=== PATIENT | female | born 1970 | race Caucasian/White ===

== ENCOUNTER 2019-02-11 19:35 | Emergency (ER) | payer OTHER ==
[~2019-02-11] VITALS: Ht 167.6 cm; Wt 56.7 kg
[~2019-02-11 19:35] MED LIST: CYCL5TAB PO; TRAM50TA PO
--- NOTE | 2019-02-11 19:48 | ED.ADGEN ---
Past History Past Medical History: Bronchitis, Endometriosis, UTI Past Surgical History: No Surgical History Alcohol Use: None Drug Use: None Adult General Chief Complaint Chief Complaint "... I started getting sick couple days ago fever , chills, cough... But I got much worse today my back hurts when I cough.... Coughing up some sputum..." HPI HPI Patient is a 48 year old female who presents with above hx and complaints coughing, fever or chills, chest/ back pain with coughing episodes. Cough that had productive brown thick sputum. Patient does smoke. No history of immunosuppression. No recent travel or specific ill contacts. Patient normally follows Dr. Gaviria. Patient has not had menstruation for 6 years. Patient denies vaping. Review of Systems Review of Systems Constitutional: History of fever or chills [] Eyes: Denies change in visual acuity, redness, or eye pain [] HENT: History of nasal congestion or sore throat [] Respiratory: History of cough or shortness of breath [] Cardiovascular: No additional information not addressed in HPI [] GI: Denies abdominal pain, nausea, vomiting, bloody stools or diarrhea [] : Denies dysuria or hematuria [] Musculoskeletal: History of Denies back pain with coughing Integument: Denies rash or skin lesions [] Neurologic: Denies headache, focal weakness or sensory changes [] Endocrine: Denies polyuria or polydipsia [] All other systems were reviewed and found to be within normal limits, except as documented in this note. Family History Family History Noncontributory Current Medications Current Medications Current Medications Medications (Trade) Dose Ordered Sig/Sharon Start Time Stop Time Status Last Admin Dose Admin Albuterol Sulfate (Ventolin Hfa Inhaler) 2 puff 1X ONCE 02/11/19 20:00 02/11/19 20:08 DC 02/11/19 22:15 2 PUFF Albuterol/ Ipratropium (Duoneb) 3 ml 1X ONCE 02/11/19 20:00 02/11/19 20:07 DC 02/11/19 21:21 3 ML Azithromycin (Zithromax) 500 mg 1X ONCE 02/11/19 20:00 02/11/19 20:07 DC 02/11/19 20:42 500 MG Ceftriaxone Sodium 1 gm/ Sodium Chloride 50 ml @ 100 mls/hr 1X ONCE 02/11/19 20:00 02/11/19 20:29 DC 02/11/19 20:42 100 MLS/HR Ceftriaxone Sodium (Rocephin) 1 gm STK-MED ONCE 02/11/19 20:30 02/11/19 20:31 DC Iohexol (Omnipaque 350 Mg/ml) 75 ml 1X ONCE 02/11/19 21:45 02/11/19 21:46 DC 02/11/19 22:18 75 ML Ketorolac Tromethamine (Toradol 30mg Vial) 30 mg 1X ONCE 02/11/19 21:15 02/11/19 21:16 DC 02/11/19 21:12 30 MG Lactated Ringer's 1,000 ml @ 1,000 mls/hr Q1H 02/11/19 20:07 02/11/19 21:06 DC 02/11/19 20:42 1,000 MLS/HR Prednisone (Prednisone) 50 mg 1X ONCE 02/11/19 20:00 02/11/19 20:07 DC 02/11/19 20:42 50 MG Sodium Chloride 50 ml @ As Directed STK-MED ONCE 02/11/19 20:30 02/11/19 20:31 DC See nursing for home meds Allergies Allergies Allergies Coded Allergies Type Severity Reaction Last Updated Verified Penicillins Allergy Unknown 02/09/16 Yes codeine Allergy Unknown 02/09/16 Yes Physical Exam Physical Exam Constitutional: Moderate acute distress, non-toxic appearance. [] HENT: Normocephalic, atraumatic, bilateral external ears normal, oropharynx moist, no oral exudates, nose normal. [] Eyes: PERRLA, EOMI, conjunctiva normal, no discharge. [] Neck: Normal range of motion, no tenderness, supple, no stridor. [] Cardiovascular: Tachycardia Heart rate regular rhythm, no murmur [] Lungs & Thorax: Bilateral breath sounds with apex with scattered wheezes and basilar rhonchi bilateral right more than left on auscultation [] Abdomen: Bowel sounds normal, soft, no tenderness, no masses, no pulsatile masses. [] Skin: Warm, dry, no erythema, no rash. [] Back: No tenderness, no CVA tenderness. [] Extremities: No tenderness, no cyanosis, no clubbing, ROM intact, no edema. [] No cording appreciated Neurologic: Alert and oriented X 3, normal motor function, normal sensory function, no focal deficits noted. [] Psychologic: Affect anxious, judgement normal, mood normal. [] Current Patient Data Vital Signs Vital Signs Date Time Temp Pulse Resp B/P (MAP) Pulse Ox O2 Delivery O2 Flow Rate FiO2 02/12/19 00:25 103 20 110/78 (89) 94 Room Air 02/11/19 19:35 98.5 Lab Results Laboratory Tests Test 02/11/19 19:50 02/11/19 20:00 02/11/19 20:29 Urine Collection Type Unknown Urine Color Yellow Urine Clarity Cloudy Urine pH 5.5 Urine Specific [place] 1.020 Urine Protein Neg (NEG-TRACE) Urine Glucose (UA) Neg mg/dL (NEG) Urine Ketones (Stick) Trace mg/dL (NEG) Urine Blood Trace (NEG) Urine Nitrite Pos (NEG) Urine Bilirubin Neg (NEG) Urine Urobilinogen Dipstick 1 mg/dL (0.2 mg/dL) Urine Leukocyte Esterase Trace (NEG) Urine RBC 1-2 /HPF (0-2) Urine WBC 5-10 /HPF (0-4) Urine Squamous Epithelial Cells Occ /LPF Urine Bacteria Many /HPF (0-FEW) Urine Mucus Slight /LPF Urine Opiates Screen Neg (NEG) Urine Methadone Screen Neg (NEG) Urine Barbiturates Neg (NEG) Urine Phencyclidine Screen Neg (NEG) Urine Amphetamine/Methamphetamine Neg (NEG) Urine Benzodiazepines Screen Neg (NEG) Urine Cocaine Screen Neg (NEG) Urine Cannabinoids Screen Neg (NEG) Urine Ethyl Alcohol Neg (NEG) White Blood Count 14.3 x10^3/uL (4.0-11.0) H Red Blood Count 4.47 x10^6/uL (3.50-5.40) Hemoglobin 13.3 g/dL (12.0-15.5) Hematocrit 39.9 % (36.0-47.0) Mean Corpuscular Volume 89 fL (79-100) Mean Corpuscular Hemoglobin 30 pg (25-35) Mean Corpuscular Hemoglobin Concent 33 g/dL (31-37) Red Cell Distribution Width 13.3 % (11.5-14.5) Platelet Count 339 x10^3/uL (140-400) Neutrophils (%) (Auto) 80 % (31-73) H Lymphocytes (%) (Auto) 13 % (24-48) L Monocytes (%) (Auto) 7 % (0-9) Eosinophils (%) (Auto) 0 % (0-3) Basophils (%) (Auto) 0 % (0-3) Neutrophils # (Auto) 11.5 x10^3uL (1.8-7.7) H Lymphocytes # (Auto) 1.8 x10^3/uL (1.0-4.8) Monocytes # (Auto) 1.0 x10^3/uL (0.0-1.1) Eosinophils # (Auto) 0.0 x10^3/uL (0.0-0.7) Basophils # (Auto) 0.1 x10^3/uL (0.0-0.2) Erythrocyte Sedimentation Rate 61 (0-25) H Prothrombin Time 10.0 SEC (9.4-11.4) Prothrombin Time INR 1.0 (0.9-1.1) Activated Partial Thromboplast Time 29 SEC (23-33) D-Dimer (Kathy) 0.21 mg/L (0.00-0.50) Sodium Level 136 mmol/L (136-145) Potassium Level 3.9 mmol/L (3.5-5.1) Chloride Level 101 mmol/L (98-107) Carbon Dioxide Level 24 mmol/L (21-32) Anion Gap 11 (6-14) Blood Urea Nitrogen 10 mg/dL (7-20) Creatinine 0.9 mg/dL (0.6-1.0) Estimated GFR (Cockcroft-Gault) 66.5 Glucose Level 140 mg/dL (70-99) H Lactic Acid Level 1.2 mmol/L (0.4-2.0) Calcium Level 8.9 mg/dL (8.5-10.1) Magnesium Level 2.0 mg/dL (1.8-2.4) Total Bilirubin 0.5 mg/dL (0.2-1.0) Direct Bilirubin 0.1 mg/dL (0.0-0.2) Aspartate Amino Transferase (AST) 18 U/L (15-37) Alanine Aminotransferase (ALT) 22 U/L (14-59) Alkaline Phosphatase 90 U/L (46-116) Troponin I Quantitative < 0.017 ng/mL (0-0.055) Total Protein 7.1 g/dL (6.4-8.2) Albumin 3.7 g/dL (3.4-5.0) POC Urine HCG, Qualitative hcg negative (Negative) EKG EKG I interpretation EKG shows a sinus tachycardia heart and 3 bpm. There is some nonspecific contour changes anterior septal leads. But no findings acute STEMI of contralateral changes.[] Radiology/Procedures Radiology/Procedures My interpretation of chest x-ray shows a right lower lobe infiltrate or atelectasis. Mild COPD type changes. [address] [address] IMAGING REPORT Signed PATIENT: NÉSTOR DEJESUS: [id number] : 1970 LOCATION: ER AGE: 48 SEX: F EXAM STATUS: REG ER ORD. PHYSICIAN: KEYLA SANDERSON MD REASON: cough, GENERAL ACHES, FEVER, X 1 DAY PROCEDURE: CHEST PA & LATERAL PA and lateral chest radiograph 02/21/2019 CLINICAL HISTORY: Generalized aching and fever for one day. PA and lateral digital radiographs of chest were obtained. No previous study is available for comparison. The cardiac silhouette is normal in size and configuration. The thoracic aorta is minimally tortuous. No acute pulmonary infiltrate is seen. No pleural effusion or pneumothorax is noted. The osseous structures are grossly intact. IMPRESSION: No acute abnormality is seen. Electronically signed by: Atif Ware MD (02/11/2019 10:33 PM) [facility] DICTATED AND SIGNED BY: ATIF WARE MD DATE: 02/11/19 943 CC: CATHY GAVIRIA MD; KEYLA SANDERSON MD ~ [][address] [address] IMAGING REPORT Signed PATIENT: NÉSTOR DEJESUS: [id number] : 1970 LOCATION: ER AGE: 48 SEX: F EXAM STATUS: REG ER ORD. PHYSICIAN: KEYLA SANDERSON MD REASON: cp pain, back pain, OMNI 350, 75ml PROCEDURE: CT ANGIOGRAPHY CHEST CTA scan of the Chest with Contrast (Pulmonary Embolism protocol) 02/11/2019 Clinical History: Chest pain. Back pain. Technique: After the intravenous administration of 75 cc of Omnipaque 350, contiguous, 0.625 mm axial sections were obtained through the chest. 2 mm axial and 3D MIP coronal and sagittal reconstructed images were obtained. One or more of the following individualized dose reduction techniques were utilized for this study: 1. Automated exposure control. 2. Adjustment of the mA and/or kV according to patient size. 3. Use of iterative reconstruction technique. Findings: Comparison is made to patient's PA and lateral chest radiographs performed earlier today. No filling defect is seen within the major branches of either pulmonary artery. There is no CT evidence of pulmonary embolism. The heart is normal in size. The thoracic aorta is tortuous but tapers normally. Scattered atherosclerotic calcification of the thoracic aorta is seen. Prominent mediastinal and hilar lymph nodes are seen, right greater than left, which are likely reactive. These measure 1 to 1.7 cm in size. Right lower lobe atelectasis and/or infiltrate is seen posteriorly. Dependent subsegmental atelectasis is seen involving both lungs. No pneumothorax or pleural effusion is seen. Images through the upper abdomen demonstrate a 5 mm low-attenuation lesion involving the right lobe of the liver consistent with a hepatic cyst. Mild degenerative changes are seen involving the thoracic spine. Impression: 1. There is no CT evidence of pulmonary embolism. 2. Right lower lobe atelectasis and/or infiltrate. Electronically signed by: Atif Ware MD (02/11/2019 10:52 PM) [facility] DICTATED AND SIGNED BY: ATIF WARE MD DATE: 02/11/19 8003 CC: CATHY GAVIRIA MD; KEYLA SANDERSON MD ~ Course & Med Decision Making Course & Med Decision Making Pertinent Labs and Imaging studies reviewed. (See chart for details) Patient declines admission at this time. Will go home on Zithromax 250 mg a day. Prednisone 50 mg a day. MDI 2 puffs 4 times a day. Patient return of any concerns. Patient follow-up with Dr. Gaviria. Patient encouraged to stop smoking. Patient follow-up pending cultures. [] Final Impression Final Impression 1. Pneumonia[] right lower lobe 2. COPD 3. Tobacco use 4. Urinary tract infection 5. Leukocytosis 14.3 6. Elevated glucose 140 7. Dragon Disclaimer Dragon Disclaimer This electronic medical record was generated, in whole or in part, using a voice recognition dictation system. Dragon Disclaimer This chart was dictated in whole or in part using Voice Recognition software in a busy, high-work load, and often noisy Emergency Department environment. It may contain unintended and wholly unrecognized errors or omissions. KEYLA SANDERSON MD Feb 11, 2019 19:48
[2019-02-11] MEDS ORDERED: predniSONE 10 MG TABLET PO ONE (20:00)
[2019-02-11] MEDS ORDERED: ALBUTEROL SULFATE 8GM INHALER. INH ONE (20:00)
[2019-02-11] MEDS ORDERED: IPRATRPIUM/ALBUTEROL 0.5/2.5MG 3 ML NEBU. NEB ONE (20:00)
[2019-02-11] MEDS ORDERED: AZITHROMYCIN 250 MG TABLET. PO ONE (20:00)
[2019-02-11] MEDS ORDERED: IV RINGERS SOLUTION,LACTATED 1,000 ML IV SCH (20:07)
[2019-02-11] MEDS ORDERED: cefTRIAXone SODIUM 1 GM VIAL ONE (20:30)
[2019-02-11] MEDS ORDERED: IV NORMAL SALINE 50ML 50 ML ONE (20:30)
[2019-02-11 20:41] LABS: BASO # 0.1 x10^3/uL (0.0-0.2); BASO % 0 % (0-3); EOS % 0 % (0-3); HEMATOCRIT 39.9 % (36.0-47.0); HEMOGLOBIN 13.3 g/dL (12.0-15.5); LYMPH # 1.8 x10^3/uL (1.0-4.8); LYMPH % 13 % (24-48); MEAN CORPUSCULAR HEMOGLOBIN 30 pg (25-35); MEAN CORPUSCULAR HGB CONC 33 g/dL (31-37); MEAN CORPUSCULAR VOLUME 89 fL (79-100); MONO % 7 % (0-9); NEUT # 11.5 x10^3uL (1.8-7.7); NEUT % 80 % (31-73); PLATELET COUNT 339 x10^3/uL (140-400); RED BLOOD COUNT 4.47 x10^6/uL (3.50-5.40); RED CELL DISTRIBUTION WIDTH 13.3 % (11.5-14.5); WHITE BLOOD COUNT 14.3 x10^3/uL (4.0-11.0)
[2019-02-11 20:45] LABS: BARBITURATES NEG (NEG); BENZODIAZEPINES NEG (NEG); CANNABINOIDS NEG (NEG); COCAINE NEG (NEG); METHADONE NEG (NEG); OPIATES NEG (NEG); PHENCYCLIDINE NEG (NEG)
[2019-02-11 20:47] LABS: AMPHETAMINE/METHAMPHETAMINE NEG (NEG)
[2019-02-11 20:53] LABS: ALBUMIN 3.7 g/dL (3.4-5.0); CALCIUM 8.9 mg/dL (8.5-10.1); CREATININE 0.9 mg/dL (0.6-1.0); DIRECT BILIRUBIN 0.1 mg/dL (0.0-0.2); GFR 66.5; POTASSIUM 3.9 mmol/L (3.5-5.1); TOTAL BILIRUBIN 0.5 mg/dL (0.2-1.0); TOTAL PROTEIN 7.1 g/dL (6.4-8.2)
[2019-02-11 20:55] LABS: BACTERIA,URINE MANY /HPF (0-FEW); BILIRUBIN,URINE NEG (NEG); CLARITY,URINE CLOUDY; COLOR,URINE YELLOW; GLUCOSE,URINE NEG (NEG); NITRITE,URINE POS (NEG); SQUAMOUS EPITHELIAL CELL,UR OCC /LPF; UROBILINOGEN,URINE 1 mg/dL (0.2 mg/dL)
[2019-02-11] MEDS ORDERED: KETOROLAC 30 MG/ML VIAL. IV ONE (21:15)
[2019-02-11] MEDS ORDERED: IOHEXOL 350 MG/ML 100 ML VIAL. IV ONE (21:45)
--- NOTE | 2019-02-11 22:37 | RAD ---
PA and lateral chest radiograph 02/21/2019 CLINICAL HISTORY: Generalized aching and fever for one day. PA and lateral digital radiographs of chest were obtained. No previous study is available for comparison. The cardiac silhouette is normal in size and configuration. The thoracic aorta is minimally tortuous. No acute pulmonary infiltrate is seen. No pleural effusion or pneumothorax is noted. The osseous structures are grossly intact. IMPRESSION: No acute abnormality is seen. Electronically signed by: Atif Ware MD (02/11/2019 10:33 PM) [facility]
--- NOTE | 2019-02-11 22:55 | RAD ---
CTA scan of the Chest with Contrast (Pulmonary Embolism protocol) 02/11/2019 Clinical History: Chest pain. Back pain. Technique: After the intravenous administration of 75 cc of Omnipaque 350, contiguous, 0.625 mm axial sections were obtained through the chest. 2 mm axial and 3D MIP coronal and sagittal reconstructed images were obtained. One or more of the following individualized dose reduction techniques were utilized for this study: 1. Automated exposure control. 2. Adjustment of the mA and/or kV according to patient size. 3. Use of iterative reconstruction technique. Findings: Comparison is made to patient's PA and lateral chest radiographs performed earlier today. No filling defect is seen within the major branches of either pulmonary artery. There is no CT evidence of pulmonary embolism. The heart is normal in size. The thoracic aorta is tortuous but tapers normally. Scattered atherosclerotic calcification of the thoracic aorta is seen. Prominent mediastinal and hilar lymph nodes are seen, right greater than left, which are likely reactive. These measure 1 to 1.7 cm in size. Right lower lobe atelectasis and/or infiltrate is seen posteriorly. Dependent subsegmental atelectasis is seen involving both lungs. No pneumothorax or pleural effusion is seen. Images through the upper abdomen demonstrate a 5 mm low-attenuation lesion involving the right lobe of the liver consistent with a hepatic cyst. Mild degenerative changes are seen involving the thoracic spine. Impression: 1. There is no CT evidence of pulmonary embolism. 2. Right lower lobe atelectasis and/or infiltrate. Electronically signed by: Atif Ware MD (02/11/2019 10:52 PM) [facility]
--- NOTE | 2019-02-11 23:15 | EKG ---
[address] [address] Test Date: 2019-02-11 Test Time: 20:38:06 Pat Name: NÉSTOR DEJESUS Department: Room: Gender: F [employer]: : 1970 Requested By: KEYLA SANDERSON Order Number: [id number] Reading MD: Measurements Intervals [place] Rate: 103 P: 0 OR: 136 QRS: 50 QRSD: 78 T: 24 QT: 324 QTc: 426 Interpretive Statements SINUS TACHYCARDIA QRS(T) CONTOUR ABNORMALITY CONSIDER ANTEROSEPTAL MYOCARDIAL DAMAGE POSSIBLY ABNORMAL ECG RI6.01 No previous ECG available for comparison
[2019-02-12] MEDS ORDERED: HYDR-1179 PO (00:08)
[2019-02-12] MEDS ORDERED: PRED50TA PO (00:08)
[2019-02-12] MEDS ORDERED: AZIT250T6 PO (00:08)
[2019-02-12 00:25] VITALS: BP 110/78
== END 2019-02-12 00:25 | disposition home or self-care (01) ==
LOC: ER 19:35
DX: J44.0 Chronic obstructive pulmonary disease with (acute) lower respiratory infection (principal); J18.1 Lobar pneumonia, unspecified organism; N39.0 Urinary tract infection, site not specified; D72.829 Elevated white blood cell count, unspecified; R73.02 Impaired glucose tolerance (oral); Z72.0 Tobacco use; Z87.440 Personal history of urinary (tract) infections; Z88.0 Allergy status to penicillin; Z88.5 Allergy status to narcotic agent
CPT/HCPCS: 36415; 71046; 71275; 80048; 80076; 80307; 81001; 81025; 83605; 83735; 84484; 85025; 85379; 85610; 85651; 85730; 87040; 87086; 93005; 94640; 96365; 96375; 99285; J0456; J0696; J1885; J7120; J7512; J7613; J7620; Q9967; 94664

== ENCOUNTER 2020-09-13 12:46 | Emergency (ER) | payer OTHER ==
[~2020-09-13] VITALS: Ht 167.6 cm; Wt 68.0 kg
[~2020-09-13 12:46] MED LIST changes: +AZIT250T6 PO; +HYDR-1179 PO; +PRED50TA PO
[2020-09-13 13:30] VITALS: BP 110/78
--- NOTE | 2020-09-13 13:34 | RAD ---
EXAM: XR EXAM OF ANKLE_LEFT 3V 09/13/2020 1:02 PM CLINICAL INDICATION: Fell downstairs, ankle pain, can't bear weight COMPARISON: None TECHNIQUE: 3 views of the left ankle FINDINGS: No acute fracture. Ankle mortise is symmetric and talar dome is intact. No soft tissue abn ormality. IMPRESSION: No acute osseous abnormality. Electronically signed by: Marychuy Gordillo MD (09/13/2020 1:32 PM) [id number]
--- NOTE | 2020-09-13 14:08 | PHYS DOC ---
Past History Past Medical History: Bronchitis, Endometriosis, UTI Past Surgical History: No Surgical History Alcohol Use: None Drug Use: None Adult General Chief Complaint Chief Complaint: ANKLE PROBLEM HPI HPI Patient is a 50-year-old female presents to the emergency department stating she fell down approximately 4 steps just prior to arrival rolling her left ankle underneath her. Patient states she did not injure any other part of her body other than her left ankle. Patient states she cannot walk on her ankle. Patient states it hurts all over her ankle. Patient states she has not taken anything for the pain or tried any treatments at home prior to her emergency room visit today. Patient denies any other aches or pains, denies any other physical complaints or physical injuries. Patient reports allergy to penicillin and codeine, states she takes no prescription medications at home, patient states the only pain medication she can tolerate are Motrin and tramadol. Patient complains of a 10/10 on a 1-10 pain scale. Review of Systems Review of Systems 14 body systems of review of systems have been reviewed. See HPI for pertinent positives and negative responses, otherwise all other systems are negative, nonpertinent or noncontributory. Allergies Allergies Allergies Coded Allergies Type Severity Reaction Last Updated Verified Penicillins Allergy Unknown 02/09/16 Yes codeine Allergy Unknown 02/09/16 Yes Physical Exam Physical Exam Constitutional: Well developed, well nourished, no acute distress, non-toxic appearance. 50-year-old female in no apparent distress. HENT: Normocephalic, atraumatic, bilateral external ears normal, oropharynx m oist, no oral exudates, nose normal. Eyes: PERRLA, EOMI, conjunctiva normal, no discharge. Neck: Normal range of motion, no tenderness, supple, no stridor. No C-spine spinal tenderness. Cardiovascular: No cyanosis appreciated, distal cap refill less than 2 seconds. Lungs & Thorax: No respiratory distress appreciated, no audible adventitious lung sounds appreciated. Abdomen: Bowel sounds normal, soft, no tenderness, no masses, no pulsatile masses. Skin: Warm, dry, no erythema, no rash. Extremities: No tenderness, no cyanosis, no clubbing, ROM intact, no edema. Except for left ankle, patient complains of pain. Limited passive range of motion related to pain, 2+ dorsalis pedis/posterior tibial pulses. No swelling appreciated, no erythema appreciated, no crepitus appreciated, no obvious deformities appreciated, no ecchymosis appreciated, no obvious visual injury appreciated. Distal cap refill less than 2 seconds. No pain at the left foot elicited. No decreased sensation distal to complaint injury. Neurologic: Alert and oriented X 3, normal motor function, normal sensory function, no focal deficits noted. Psychologic: Affect normal, judgement normal, mood normal. Current Patient Data Vital Signs Vital Signs Date Time Temp Pulse Resp B/P (MAP) Pulse Ox O2 Delivery O2 Flow Rate FiO2 09/13/20 13:30 97.9 74 16 110/78 (89) 97 Room Air EKG EKG [] Radiology/Procedures Radiology/Procedures PATIENT: NÉSTOR DEJESUS LACCOUNT: [id number] : 1970 LOCATION: ER AGE: 50 SEX: F EXAM STATUS: REG ER ORD. PHYSICIAN: EZIO JUSTICE DO REASON: FELL DOWN THE STAIRS, ANKLE PAIN, CAN'T BEAR WEIGHT PROCEDURE: ANKLE LEFT 3V EXAM: XR EXAM OF ANKLE_LEFT 3V 09/13/2020 1:02 PM CLINICAL INDICATION: Fell downstairs, ankle pain, can't bear weight COMPARISON: None TECHNIQUE: 3 views of the left ankle FINDINGS: No acute fracture. Ankle mortise is symmetric and talar dome is intact. No soft tissue abnormality. IMPRESSION: No acute osseous abnormality. Electronically signed by: Marychuy Gordillo MD (09/13/2020 1:32 PM) [id number] DICTATED AND SIGNED BY: MARYCHUY GORDILLO MD DATE: 09/13/20 1330 CC: CATHY GAVIRIA MD; EZIO JUSTICE DO; EMERGENCY,DEPARTMENT ~MTH0 0 Heart Score C/O Chest Pain: No Risk Factors: Risk Factors: DM, Current or recent (<one month) smoker, HTN, HLP, family history of CAD, obesity. Risk Scores: Risk Factors: DM, Current or recent (<one month) smoker, HTN, HLP, family history of CAD, obesity. Course & Med Decision Making Course & Med Decision Making Pertinent Labs and Imaging studies reviewed. (See chart for details) 50-year-old female, vital signs reviewed, presents emergency department complaining of left ankle pain after stumbling down 4 steps. Physical examination was unremarkable, patient's complaint of pain exceeds physical presentation. Left ankle x-ray performed read negative for acute fracture by house radiologist interpretation. Discussed with patient physical examination findings and left x-ray interpretation, will apply Rashaun wrap, ankle stirrup splint, ice. Discussed with patient RICE therapy. Will give 600 mg ibuprofen and 50 mg tramadol for pain in the ER today. Will give crutches with crutch walking instructions. 3 days off work, follow-up with primary care for ongoing work excuse or evaluation of left ankle discomfort. Patient gave verbal understanding of discharge home instructions, RICE therapy, ibuprofen for discomfort, crutch use, follow-up with Dr. Gaviria within the next 2 days for reexamination of ankle injury, return to ER precautions or concerns, patient had no further questions or concerns and was discharged home without incident. Diagnosis left ankle sprain. Low likelihood occult fracture, low likelihood c ontusion. Dragon Disclaimer Dragon Disclaimer This electronic medical record was generated, in whole or in part, using a voice recognition dictation system. Departure Departure: Impression: Primary Impression: Left ankle sprain Disposition: 01 DC HOME SELF CARE/HOMELESS Condition: GOOD Referrals: CATHY GAVIRIA MD (PCP) Patient Instructions: Crutch Use, Elastic Bandage and RICE, RICE - Routine Care for Injuries, Splint Care-Brief Additional Instructions: Your evaluated in the emergency department today for a left ankle injury, the x- ray did not show any concerns for a fracture of the bones of the left ankle, we have discussed RICE therapy, splint use, crutches use. I have given you 3 days off of work, please use this time to follow-up with Dr. Gaviria for reevaluation of your left ankle injury and consideration for extension of your work excuse. I have given you a prescription for 600 mg ibuprofen you may take them up to 3 times a day for pain and discomfort. Please return to the emergency department for worsening symptoms or other concerns. EMERGENCY DEPARTMENT GENERAL DISCHARGE INSTRUCTIONS Thank you for coming to [facility] (ED) today and trusting us with you care. We trust that you had a positivie experience in our Emergency Department. If you wish to speak to the department management, you may call the director at [phone]. YOUR FOLLOW UP INSTRUCTIONS ARE FOLLOWS: 1. Do you have a private Doctor? If you do not have a private doctor, please ask for a resource list of physicians or clinics that may be able to assist you with follow up care. 2. The Emergency Physician has interpreted your x-rays. The X-Ray specialist will also review them. If there is a change in the findings, you will be notified in 48 hours when at all possible. 3. A lab test or culture has been done, your results will be reviewed and you will be notified if you need a change in treatment. ADDITIONAL INSTRUCTIONS AND INFORMATION: 1. Your care today has been supervised by a physician who is specially trained in emergency care. Many problems require more than one evaluation for a complete diagnosis and treatment. We recommend that you schedule your follow up appointment as recommended to ensure complete treatment of you illness or injury. If you are unable to obtain follow up care and continue to have a problem, or if your condition worsens, we recommend that you return to the ED. 2. We are not able to safely determine your condition over the phone nor are we able to give sound medical advice over the phone. For these safety reasons, if you call for medical advice we will ask you to come to the ED for further evaluation. 3. If you have any questions regarding these discharge instructions please call the ED at [phone]. SAFETY INFORMATION: In the interest of safety, wellness, and injury prevention; we encourage you to wear your sealbelt, if you smoke; quite smoking, and we encourage family to use a protective helmet for bicycling and other sporting events that present an increased risk for head injury. IF YOUR SYMPTOMS WORSEN OR NEW SYMPTOMS DEVELOP, OR YOU HAVE CONCERNS ABOUT YOUR CONDITION; OR IF YOUR CONDITION WORSENS WHILE YOU ARE WAITING FOR YOUR FOLLOW UP APPOINTMENT; EITHER CONTACT YOUR PRIMARY CARE DOCTOR, THE PHYSICIAN WHOSE NAME AND NUMBER YOU WERE GIVEN, OR RETURN TO THE ED IMMEDIATELY. Scripts Ibuprofen (IBUPROFEN) 600 Mg Tablet 600 MG PO TID PRN PRN for PAIN, #20 TAB 0 Refills Prov: GREGORY LUCIO APRN 09/13/20 Problem Qualifiers Primary Impression: Left ankle sprain Encounter type: initial encounter Involved ligament of ankle: unspecified ligament Qualified Codes: S93.402A - Sprain of unspecified ligament of left ankle, initial encounter GREGORY LUCIO APRN Sep 13, 2020 14:08
[2020-09-13] MEDS ORDERED: IBUP600T16 PO (14:25)
[2020-09-13] MEDS: IBUPROFEN 600 MG TABLET. PO ONE (14:25)
[2020-09-13] MEDS: traMADol 50 MG TABLET PO ONE (14:26)
== END 2020-09-13 14:36 | disposition home or self-care (01) ==
LOC: ER 12:46
DX: S93.402A Sprain of unspecified ligament of left ankle, initial encounter (principal); Z87.440 Personal history of urinary (tract) infections; Z88.0 Allergy status to penicillin; Z88.6 Allergy status to analgesic agent; W10.8XXA Fall (on) (from) other stairs and steps, initial encounter; Y93.89 Activity, other specified; Y92.89 Other specified places as the place of occurrence of the external cause; Y99.8 Other external cause status
CPT/HCPCS: 73610; 99283-25